=== PATIENT | female | born 1965 | race Caucasian/White ===

== ENCOUNTER 2018-01-26 09:01 | Emergency (ER) | payer OTHER ==
[~2018-01-26] VITALS: Ht 165.1 cm; Wt 65.8 kg
--- NOTE | 2018-01-26 09:51 | ED Trauma-Multisystem ---
General Chief Complaint: Trauma-Non Activation Stated Complaint: FALL RIB/ABD PAIN MULTIPLE SCRAPES Nursing Triage Note: pt reports she fell while going for a walk outside. pt states she lost her footing while looking at her phone. She denies loc. Pt has abrasions to both plams and knees. Pt also reports sternal pain and r rib pain. Source of Information: Patient Exam Limitations: No Limitations History of Present Illness Date Seen by Provider: Jan 26, 2018 Time Seen by Provider: 09:46 Initial Comments The patient is a 52-year-old white female who was out walking for her health. Regrettably she was multi functioning at the time and looking at her cell phone. She tripped on a broken sidewalk and before she knew it she was on the ground. She noted pain in her knees and palms and as she began to get up she noted pain in the low chest anteriorly. She does not have shortness of breath. And she was able to walk. Location Injury Occurred: [facility] Occurred: Just Prior to Arrival Pain/Injury Location: Chest, Lower Extremity Method of Injury: Fall Allergies and Home Medications Allergies Coded Allergies: Penicillins (Verified Allergy, Unknown, 01/26/18) Home Medications No Active Prescriptions or Reported Meds Patient Home Medication List Home Medication List Reviewed: Yes Review of Systems Constitutional: see HPI Eyes: No Symptoms Reported Ears: No Symptoms Reported Nose: No Symptoms Reported Mouth: No Symptoms Reported Throat: No Symptoms to Report Respiratory: no symptoms reported Cardiovascular: No Symptoms Reported Gastrointestinal: no symptoms reported Musculoskeletal: joint pain Skin: other Psychiatric/Neurological: No Symptoms Reported Past Aawbmxr-Nthmmm-Gmcsvc Hx Patient Social History Alcohol Use: Denies Use Recreational Drug Use: No Smoking Status: Never a Smoker Recent Foreign Travel: No Contact w/Someone Who Travel: No Recent Infectious Disease Expo: No Physical Abuse: No Sexual Abuse: No Mistreated: No Fear: No Past Medical History Nursing Suicide Risk Score: 0 Physical Exam Vital Signs Vital Signs - First Documented 01/26/18 09:17 Temp 98.1 Pulse 84 Resp 20 B/P (MAP) 135/84 (101) Pulse Ox 99 Temperature (Fahrenheit): 98.1 General Appearance: No Apparent Distress, WD/WN Head: No Evidence of Injury Eyes: Bilateral Eye Normal Inspection Ears, Nose, Throat: No Evidence of ENT Injury Neck: Full Range of Motion, Normal Inspection, Non Tender, Supple Cardiovascular: Regular Rate, Rhythm, No Edema, No Gallop, No JVD, No Murmur, Normal Peripheral Pulses Respiratory: Lungs Clear, Normal Breath Sounds, Other Gastrointestinal: Normal Bowel Sounds, No Organomegaly Comments There are fresh abrasions on the heel of both hands and on the anterior surface of the knees. The area of abrasion on the right knee is slightly above the patella and the abrasion on the left is prepatellar. Mariola Coma Score Best Eye Response ([place]): (4) Open Spontaneously Best Verbal Response ([place]): (5) Oriented Best Motor Response ([place]): (6) Obeys Commands Progress/Results/Core Measures Results/Orders My Orders Orders - LAM PARKER MD Chest Pa/Lat (2 View) (01/26/18 09:44) Vital Signs/I&O 01/26/18 01/26/18 09:17 10:12 Temp 98.1 98.1 Pulse 84 84 Resp 20 20 B/P (MAP) 135/84 (101) 135/84 (101) Pulse Ox 99 99 Blood Pressure Mean: 101 Departure Impression Primary Impression: rib contusions Additional Impression: multiple abrasions Disposition: HOME, SELF-CARE Condition: Stable/Unchanged Departure-Patient Inst. Decision time for Depature: 10:41 Referrals: NO,LOCAL PHYSICIAN (PCP) Primary Care Physician Patient Instructions: Skin Abrasions (DC) Add. Discharge Instructions: All discharge instructions reviewed with patient and/or family. Voiced understanding. Keep wounds clean and dry. Bactroban or triple antibiotic would be useful. Ibuprofen 600 mg 4 times daily or naproxen 440 mg twice daily would be useful for the rib pain Scripts No Active Prescriptions or Reported Meds LAM PARKER MD Jan 26, 2018 09:51
--- NOTE | 2018-01-26 10:10 | Diagnostic Imaging Report ---
INDICATION: Fall. COMPARISON: None Findings: 2 views of the chest are obtained. Heart size is normal. The pulmonary vessels appear unremarkable. There is no pneumothorax, mediastinal widening or pleural fluid. Lungs are clear. The osseous structures appear unremarkable. IMPRESSION: Negative chest. Dictated by: Dictated on workstation # [id number]
[2018-01-26 10:49] VITALS: BP 129/78
== END 2018-01-26 11:03 | disposition home or self-care (01) ==
LOC: ER 09:06
DX: S80.211A Abrasion, right knee, initial encounter (principal); S80.212A Abrasion, left knee, initial encounter; S60.511A Abrasion of right hand, initial encounter; S60.512A Abrasion of left hand, initial encounter; R40.2142 Coma scale, eyes open, spontaneous, at arrival to emergency department; R40.2252 Coma scale, best verbal response, oriented, at arrival to emergency department; R40.2362 Coma scale, best motor response, obeys commands, at arrival to emergency department; Z88.0 Allergy status to penicillin; W01.10XA Fall on same level from slipping, tripping and stumbling with subsequent striking against unspecified object, initial encounter
CPT/HCPCS: 71046